=== PATIENT | female | born 1955 | race Caucasian/White ===

== ENCOUNTER 2016-07-12 14:38 | Emergency (ER) | payer OTHER ==
[~2016-07-12] VITALS: Ht 157.5 cm; Wt 74.8 kg
[~2016-07-12 14:38] MED LIST: AMLODIPINE BESYL5 M1 PO; ATORVASTATIN CA40 M1 PO; AUGMENTIN 500-1 EACH PO; BUPROPION XL150 MG PO; CEFTIN500 M1 PO; CIPRO 500MG TA500 MG PO; CITALOPRAM HYDR40 MG PO; ESCITALOPRAM OX10 MG PO; FERROUS SULFAT325 M1 PO; HCTZ-METOPROLOL1 TAB; HYDRODIURIL 2525 MG PO; LOSARTAN POTASS25 MG PO; LYRICA150 M1 PO; MORPHINE SULFAT15 M1 PO; MS CONTIN15 M1 PO; PANTOPRAZOLE SO40 M1 PO; PERCOCET 5-3251 EACH PO; PRAVASTATIN40 MG PO; PROAIR HFA8.5 GM INH; SYNTHROID0.05 MG PO; TRAMADOL HCL E100 MG PO; TRAZODONE50 MG PO; VITAMIN D1000 IU PO
[2016-07-12] MEDS ORDERED: PERCOCET 5-3251 EACH PO (15:01)
[2016-07-12] MEDS ORDERED: CYCLOBENZAPRINE10 M1 PO (15:01)
--- NOTE | 2016-07-12 15:01 | ED NECK/BACK PAIN COMPLAINT ---
History of Present Illness General Chief Complaint: Low Back Pain/Injury Stated Complaint: CHRONIC BACK PAIN Source: patient Exam Limitations: no limitations Vital Signs & Intake/Output Vital Signs & Intake/Output Vital Signs Date Time Temp Pulse Resp B/P Pulse O2 O2 Flow FiO2 Ox Delivery Rate 07/12 1509 100 140/77 07/12 1447 97.1 114 20 138/54 96 Room Air ED Intake and Output 07/13 0000 07/12 1200 Intake Total 0 Output Total Balance 0 Intake, Oral 0 Patient 165 lb Weight Allergies Coded Allergies: adhesive tape (Severe, rash, itchy 04/01/16) Reconcile Medications Albuterol Sulfate (Proair Hfa) 8.5 GM HFA.AER.AD 2 PUF INH Q4-6 PRN PRN Shortness of Breath Amlodipine Besylate 5 MG TABLET 1 TAB PO DAILY HEART (Reported) Atorvastatin Calcium 40 MG TABLET 1 TAB PO DAILY CHOLESTEROL (Reported) Bupropion HCl (Bupropion XL) 150 MG TAB.ER.24H 1 TAB PO QAM MENTAL HEALTH ( Reported) Cholecalciferol (Vitamin D3) 1,000 UNIT TABLET 1 TAB PO DAILY supplement ( Reported) Cyclobenzaprine HCl 10 MG TABLET 1 TAB PO TID BACK PAIN Escitalopram Oxalate 10 MG TABLET 1 TAB PO DAILY MENTAL HEALTH (Reported) Levothyroxine Sodium (Synthroid) 0.05 MG TAB 1 TAB PO DAILY AC THYROID ( Reported) Losartan Potassium 25 MG TABLET 1 TAB PO DAILY htn (Reported) Oxycodone HCl/Acetaminophen (Percocet 5-325 MG Tablet) 5 MG-325 MG TABLET 1-2 TAB PO Q6P PRN pain Pantoprazole Sodium 40 MG TABLET.DR 1 TAB PO DAILY GI (Reported) Pregabalin (Lyrica) 150 MG CAPSULE 1 CAP PO BID NEUROPATHY (Reported) Tramadol HCl (Tramadol HCl ER) 100 MG TAB.ER.24H 1 TAB PO DAILY chronic pain (Reported) TRAZODONE HCL (Trazodone HCl) 50 MG TABLET 1-2 TAB PO QPM PRN SLEEP (Reported ) Reason to Stop at ADM: DROWSY Triage Note: PT TO E C/O CHRONIC LOWER BACK PAIN X 5-6 DAYS. PT HAS BEEN TAKING OTC MEDS WITH NO RELIEF. STATES INJURED BACK IN JANUARY 2016, NO NEW INJURY. Triage Nurses Notes Reviewed? yes Onset: Abrupt Duration: day(s):, constant, continues in ED Timing: recent history Quality/Severity: moderate, severe Location: lumbar spine Radiation: buttocks Loss of Consciousness: no loss of consciousness HPI: 60-year-old female comes into emergency room with complaints of low back pain. Patient has a history of chronic low back pain secondary to spondylolsis / sciatica. Pain is sharp. Worse with range of motion. Patient has been experiencing this pain for a long time. Patient reports he got worse over the last few days. This is a chronic issue for the patient. Patient is reportedly supposed to be getting surgery through [employer] [employer]. Patient reports that Percocet has helped with the pain in the past. She has been using over-the- counter medication at home as well as moist heat and ice with no relief. (ZAINAB PAIGE) Past History Travel History Traveled to [place] past 21 day No Medical History Any Pertinent Medical History? see below for history Neurological: NONE EENT: NONE Cardiovascular: hypertension, hyperlipidemia Respiratory: NONE Gastrointestinal: NONE Hepatic: NONE Renal: urosepsis Musculoskeletal: NONE Psychiatric: depression Endocrine: hypothyroidism Blood Disorders: NONE Cancer(s): NONE TELEPHONIC NURSE/Reproductive: NONE History of MRSA: No History of VRE: No History of CDIFF: No Pneumonia Vaccine: 05/05/15 Influenza Vaccine: 05/05/15 Surgical History Surgical History: SHOULDER REPLACEMENT ROTATOR CUFF Psychosocial History Who do you live with Mother Services at Home None What is your primary language Ethiopian Tobacco Use: Current Daily Use Daily Tobacco Use Amount/Type: => 5 Cigarettes daily ETOH Use: occasional use Illicit Drug Use: denies illicit drug use Family History Family History, If Any: BROTHER FH: hypertension MOTHER FH: hypertension FATHER FH: hypertension Heart attack Hx Contributory? No (ZAINAB PAIGE) Review of Systems Review of Systems Constitutional: Reports: no symptoms. Eyes: Reports: no symptoms. Ears, Nose, Throat, Mouth: Reports: no symptoms. Respiratory: Reports: no symptoms. Cardiovascular: Reports: no symptoms. Gastrointestinal/Abdominal: Reports: no symptoms. Musculoskeletal: Reports: see HPI. Skin: Reports: no symptoms. Neurological/Psychological: Reports: no symptoms. All Other Systems: Reviewed and Negative (ZAINAB PAIGE) Physical Exam Physical Exam General Appearance: well developed/nourished, mild distress Head: atraumatic Eyes: Bilateral: normal appearance. Ears, Nose, Throat, Mouth: hearing grossly normal, moist mucous membrane Neck: normal inspection Respiratory: no respiratory distress Back: normal inspection, decreased range of motion, pain with ROM Extremities: normal range of motion Motor: Deficit L4 Right: No Deficit L4 Left: No Deficit L5 Right: No Deficit L5 Left: No Deficit S1 Right: No Deficit S1 Right: No Neurologic/Psych: awake, alert, oriented x 3, normal mood/affect Skin: intact, normal color, warm/dry (ZAINAB PAIGE) Progress Differential Diagnosis: C spine injury, carotid dissection, cauda equina syn, herniated disc, myofascial strain, sciatica, thoracic outlet syn, ureterolithiasis, arthritis, degenerative disc disease, Plan of Care: 07/12/2016 3:15:15 PM Patient nontoxic appearing. Patient clinically looks well. This is a chronic issue for the patient. Patient needs close follow-up with primary care doctor. Follow-up with your back surgeon. Return if any other concerns. (ZAINAB PAIGE) Departure Departure Disposition: HOME OR SELF CARE Condition: Stable Clinical Impression Primary Impression: Acute exacerbation of chronic low back pain Referrals: REBECCA MCKINLEY,ROSEANN Mireles (PCP/Family) Additional Instructions: Take Percocet and Flexeril as prescribed. Follow-up with your orthopedic doctor. Return to the emergency room immediately if any other concerns worsening symptoms. Please go over all results of today's visit with your primary care doctor. Contact your primary care doctor to let them know you were here in the emergency room. There may be nonspecific findings which may not be related to your visit today here in the emergency room but may require further evaluation and chronic monitoring by your primary care doctor. If you had a laceration today the chance of foreign body always remains. You should follow-up with your primary care doctor for recheck in 3-5 days for a wound check. If you had an x-ray done there is a chance that a fracture could have been missed on initial read and you should follow-up with your primary care doctor for repeat x-rays if symptoms persist. If your blood pressure was elevated here in the emergency room please have rechecked by her primary care doctor within the next 48 hours by your primary care doctor. If you were prescribed a narcotic here in the emergency room or any type of controlled substances you're not allowed to drive while taking this medication or operate any type of heavy machinery. Narcotics can make you feel lightheaded dizziness nausea and can cause constipation. You may need to pickle sorter a stool softener. Thank you for choosing [facility] emergency room. Please return to the emergency room immediately if you have any other concerns worsening of symptoms. Departure Forms: Customer Survey General Discharge Information Prescriptions: Current Visit Scripts Oxycodone HCl/Acetaminophen (Percocet 5-325 MG Tablet) 1-2 TAB PO Q6P PRN pain #20 TAB Cyclobenzaprine HCl 1 TAB PO TID #20 TAB (ZAINAB PAIGE) PA/WET SANDER Co-Sign Statement Statement: ED Attending supervision documentation- [] I saw and evaluated the patient. I have also reviewed all the pertinent lab results and diagnostic results. I agree with the findings and the plan of care as documented in the PA's/WET SANDER's documentation. [X] I have reviewed the ED Record and agree with the PA's/WET SANDER's documentation. [] Additions or exceptions (if any) to the PAs/WET SANDER's note and plan are summarized below: [] (CHI MCKINLEY,AYANNA)
[2016-07-12 15:09] VITALS: BP 140/77
== END 2016-07-12 15:10 ==
LOC: ERH 14:38
DX: G89.29 Other chronic pain (principal); M54.5 Low back pain

== ENCOUNTER → 2016-09-16 | Day surgery (SDC) | payer OTHER ==
--- NOTE | 2016-09-15 16:52 | History & Physical Pre-Op ---
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 Previous Pap smears in 2007. Allergies/Medications Allergies: Coded Allergies: adhesive tape (Severe, rash, itchy 04/01/16) Uncoded Allergies: VICRYL SUTURE (09/10/16) Home Med list Albuterol Sulfate (Proair Hfa) 8.5 GM HFA.AER.AD 2 PUF INH Q4-6 PRN PRN Shortness of Breath Amlodipine Besylate 5 MG TABLET 1 TAB PO DAILY HEART (Reported) Atorvastatin Calcium 40 MG TABLET 1 TAB PO DAILY CHOLESTEROL (Reported) Bupropion HCl (Bupropion XL) 150 MG TAB.ER.24H 1 TAB PO QAM MENTAL HEALTH ( Reported) Cholecalciferol (Vitamin D3) 1,000 UNIT TABLET 1 TAB PO DAILY supplement ( Reported) Cyclobenzaprine HCl 10 MG TABLET 1 TAB PO TID BACK PAIN Escitalopram Oxalate 10 MG TABLET 1 TAB PO DAILY MENTAL HEALTH (Reported) Levothyroxine Sodium (Synthroid) 0.05 MG TAB 1 TAB PO DAILY AC THYROID ( Reported) Losartan Potassium 25 MG TABLET 1 TAB PO DAILY htn (Reported) Oxycodone HCl/Acetaminophen (Percocet 5-325 MG Tablet) 5 MG-325 MG TABLET 1-2 TAB PO Q6P PRN pain Pantoprazole Sodium 40 MG TABLET.DR 1 TAB PO DAILY GI (Reported) Pregabalin (Lyrica) 150 MG CAPSULE 1 CAP PO BID NEUROPATHY (Reported) Tramadol HCl (Tramadol HCl ER) 100 MG TAB.ER.24H 1 TAB PO DAILY chronic pain (Reported) TRAZODONE HCL (Trazodone HCl) 50 MG TABLET 1-2 TAB PO QPM PRN SLEEP (Reported ) Reason to Stop at ADM: DROWSY Past History Medical History Neurological: NONE EENT: NONE Cardiovascular: hypertension, hyperlipidemia Respiratory: NONE Gastrointestinal: NONE Hepatic: NONE Renal: urosepsis Musculoskeletal: NONE Psychiatric: depression Endocrine: hypothyroidism Blood Disorders: NONE Cancer(s): NONE BACKER UP/Reproductive: NONE History of MRSA: No History of VRE: No History of CDIFF: No Surgical History Pertinent Surgical History: SHOULDER REPLACEMENT ROTATOR CUFF Past Family/Social History Family History Relations & Conditions if any BROTHER FH: hypertension MOTHER FH: hypertension FATHER FH: hypertension Heart attack Psychosocial History Services at Home None Functional Ability ADLs Independent: dressing, eating, toileting, bathing. Ambulation: independent IADLs Independent: shopping, housework, finances, food prep, telephone, medication admin. Review of Systems Review of Systems Constitutional: Reports: no symptoms. EENTM: Reports: no symptoms. Cardiovascular: Reports: no symptoms. Respiratory: Reports: no symptoms. GI: Reports: no symptoms. Genitourinary: Reports: no symptoms. Musculoskeletal: Reports: no symptoms. Skin: Reports: no symptoms. Neurological/Psychological: Reports: no symptoms. Hematologic/Endocrine: Reports: no symptoms. Immunologic/Allergic: Reports: no symptoms. All Other Systems: Reviewed and Negative Exam & Diagnostic Data Last 24 Hrs of Vital Signs/I&O Vital signs stable Physical Exam: HEENT normocephalic atraumatic Chest clear to auscultation bilaterally Cardiovascular: No normal S1-S2 Abdomen: Soft nontender Pelvic: Deferred to OR Extremities no clubbing cyanosis or edema Assessment/Plan Assessment/Plan: Endocervical MADHURI-3 Cold knife conization of the cervix As Ranked By This Provider Problem List: 1. MADHURI III with severe dysplasia
[~2016-09-16] VITALS: Ht 157.5 cm; Wt 72.6 kg
[~2016-09-16] MED LIST changes: +CYCLOBENZAPRINE10 M1 PO
--- NOTE | 2016-10-07 13:23 | Operative Report ---
Operative/Inv Procedure Report Surgery Date: 09/16/16 Name of Procedure: Cold knife conization Pre-Operative Diagnosis: MADHURI-3 Post-Operative Diagnosis: Same Estimated Blood Loss: less than 50ml Surgeon/Metal Bending Machine Operator: JOE MASTERSON MD Anesthesia: laryngeal mask airway, moderate sedation Operative/Procedure Note Note: The patient was brought to the operating room placed on the OR table in the dorsal supine position. She was given adequate anesthesia and repositioned in a modified dorsal lithotomy. She was prepped and draped in usual sterile fashion. A weighted speculum was inserted into the vagina with the help of a Shahsank retractor to stay sutures were placed at 3 and 9:00 in a [id number] fashion of 0 Polysorb. The sutures were then tagged. Lugol's solution was applied to the ectocervix. CONIZATION WAS PERFORMED FROM 6:00 TO 12:00 ON EACH SIDE AND THIS WAS REMOVED TO STAY SUTURE WAS PLACED AT 12:00 FOR IDENTIFICATION. AN ENDOCERVICAL CURETTAGE WAS PERFORMED REVEALING A SMALL AMOUNT OF TISSUE. USING THE 2 TAG SUTURES A RUNNING LOCKING Fashion CLOSURE WAS COMPLETED ON EACH LIP WITH GOOD HEMOSTASIS. SURGICEL WAS PLACED INTO THE DEFECT AND THE SUTURES WERE CLOSED OVERTOP OF THAT. THEN AWAKENED AND SENT TO RECOVERY IN GOOD CONDITION ALL NEEDLE, SPONGE, AND ASPIRIN COUNTS WERE CORRECT AT THE END OF THE PROCEDURE
== END ==
LOC: STS 03:45
DX: N87.1 Moderate cervical dysplasia (principal); I10 Essential (primary) hypertension; E78.5 Hyperlipidemia, unspecified; E03.9 Hypothyroidism, unspecified
CPT/HCPCS: 88305; 88307; J1885; J2250